=== PATIENT | male | born 1955 | race Caucasian/White ===

== ENCOUNTER 2017-08-03 05:44 | Inpatient (IN) | payer MEDICAID ==
[~2017-08-03] VITALS: Ht 188 cm; Wt 97.5 kg
[~2017-08-03 05:44] MED LIST: ATOR20TA65 PO; ENAL20TA PO; HYDR-3933 PO; HYDR25TA PO; INDO75CA3 PO; ZOLP10TA2 PO
[2017-08-03] MEDS ORDERED: LACTATED RINGERS 1,000 ML IV SCH (06:40)
[2017-08-03 06:47] LABS: BASOPHILS % 0.7 % (0.0-2.0); HEMATOCRIT. 42.8 % (42.0-52.0); HEMOGLOBIN. 14.5 g/dL (14.0-18.0); LYMPHOCYTES % 25.2 % (20.0-50.0); MEAN CORPUSCULAR HEMOGLOBIN 27.5 pg (28.0-32.0); MEAN CORPUSCULAR VOLUME 81.4 fL (80.0-94.0); MEAN PLATELET VOLUME 8.9 fl (7.4-10.4); MONOCYTES % 8.2 % (2.0-8.0); NEUTROPHILS % 63.9 % (40.0-76.0); PLATELET 241 x1000/uL (130-400); RED BLOOD CELL COUNT 5.26 mill/uL (4.7-6.1); RED CELL DISTRIBUTION WIDTH 15.5 % (11.6-14.6)
[2017-08-03] MEDS ORDERED: TRANEXAMIC ACID 1,000 MG in SODIUM CHLORIDE 0.9% 100 ML IV SCH (07:00)
[2017-08-03 07:01] LABS: CARBON DIOXIDE 29 mEq/L (21-32); CHLORIDE 103 mEq/L (98-107); PARTIAL THROMBOPLASTIN TIME 25.2 sec (23.4-31.0); PROTHROMBIN TIME 10.7 sec (9.4-11.6)
[2017-08-03 07:03] LABS: CLARITY URINE CLEAR (CLEAR); COLOR URINE YELLOW (YELLOW); GLUCOSE URINE NEGATIVE (NEGATIVE); KETONES URINE NEGATIVE (NEGATIVE); LEUKOCYTE ESTERASE URINE NEGATIVE (NEGATIVE); NITRITE URINE NEGATIVE (NEGATIVE); OCCULT BLOOD URINE NEGATIVE (NEGATIVE); PROTEIN URINE NEGATIVE (NEGATIVE); SPECIFIC GRAVITY URINE 1.023 (1.005-1.030); UROBILINOGEN URINE 0.2 E.U./dL (0.2-1.0)
[2017-08-03] MEDS ORDERED: BACITRACIN ZINC 15GM TUBE TOP ONE (07:11)
[2017-08-03] MEDS ORDERED: MORPHINE SULFATE/PF 1MG/ML 10ML AMP ONE (07:11)
[2017-08-03] MEDS ORDERED: NORMAL SALINE 0.9% 10 ML SYR ONE ×2 (07:12→07:35)
[2017-08-03] MEDS ORDERED: BACITRACIN 50,000 UNITS/VIAL ONE ×2 (07:13→07:35)
[2017-08-03] MEDS ORDERED: BUPIVACAINE/EPINEPHRINE/PF 0.25%/0.0005 30ML ONE ×2 (07:13→07:18)
[2017-08-03] MEDS ORDERED: METHYLENE BLUE 50 MG/10 ML AMP IV ONE (07:18)
[2017-08-03] MEDS ORDERED: GENTAMICIN SULF 40MG/ML 2ML VIAL ONE (07:41)
[2017-08-03] MEDS ORDERED: EPINEPHRINE 1:1000 1 MG/ML AMP ONE (07:42)
[2017-08-03] MEDS ORDERED: CEFAZOLIN SODIUM 1000MG/VIAL ONE (08:10)
[2017-08-03] MEDS ORDERED: DEXAMETHASONE 4MG/ML 1ML VIAL ONE (08:10)
[2017-08-03] MEDS ORDERED: LABETALOL HCL 20MG/4ML CARPUJECT IV PRN (08:45)
[2017-08-03] MEDS ORDERED: MEPERIDINE HCL/PF 25MG/ML CPJ IV PRN (08:45)
[2017-08-03] MEDS ORDERED: ONDANSETRON HCL 4MG/2ML VIAL IV PRN ×2 (08:45→11:30)
[2017-08-03] MEDS ORDERED: ACETAMINOPHEN 325MG TABLET PO PRN (11:30)
[2017-08-03] MEDS ORDERED: MAGNESIUM HYDROXIDE 400MG/5ML 30ML UDC PO PRN (11:30)
[2017-08-03] MEDS ORDERED: TRAMADOL 50MG TABLET PO PRN (11:30)
[2017-08-03] MEDS: HYDROMORPHONE HCL/PF 2MG/ML CPJ IV PRN ×7 (11:40→12:36)
[2017-08-03] MEDS ORDERED: NALOXONE INJ IV PRN (12:30)
[2017-08-03] MEDS ORDERED: DIPHENHYDRAMINE INJ IV PRN (12:30)
[2017-08-03] MEDS ORDERED: HYDROMORPHONE PCA 10MG/50ML IV PRN (12:30)
[2017-08-03] MEDS ORDERED: ONDANSETRON INJ IV PRN (12:30)
[2017-08-03] MEDS: CEFAZOLIN 2,000 MG in DEXT 5% WATER 100 ML IV SCH (15:52)
[2017-08-03 20:00] VITALS: BP 131/67
[2017-08-03] MEDS: DOCUSATE SODIUM 100MG CAPSULE PO SCH (20:30)
[2017-08-03] MEDS ORDERED: HYDROCODONE/ACETAMINOPHEN 10/325MG TABLET PO PRN (20:30)
[2017-08-03] MEDS ORDERED: DEXTROSE 50% WATER 50ML SYRINGE IV PRN (20:45)
[2017-08-03] MEDS: INSULIN LISPRO 100 UNITS/ML SUBCUT SCH (20:58)
[2017-08-03] MEDS: BLOOD SUGAR DIAGNOSTIC STRIP TEST SCH (20:58)
[2017-08-03] MEDS ORDERED: ZOLPIDEM TARTRATE 5MG TABLET PO PRN (21:00)
[2017-08-03] MEDS ORDERED: ENOXAPARIN 30MG/0.3ML SYR SUBCUT SCH (21:00)
[2017-08-03 21:20] VITALS: BP 131/78
[2017-08-04] VITALS: BP 117/65
[2017-08-04] MEDS ORDERED: CLONIDINE 0.1MG TABLET PO PRN (00:15)
[2017-08-04] MEDS: CEFAZOLIN 2,000 MG in DEXT 5% WATER 100 ML IV SCH (00:44)
[2017-08-04] MEDS: BLOOD SUGAR DIAGNOSTIC STRIP TEST SCH ×4 (06:24→21:00)
[2017-08-04 07:39] LABS: BASOPHILS % 0.3 % (0.0-2.0); EOSINOPHILS % 0.5 % (0.0-5.0); HEMATOCRIT. 34.4 % (42.0-52.0); LYMPHOCYTES % 19.6 % (20.0-50.0); MEAN CORPUSCULAR HEMOGLOBIN 27.8 pg (28.0-32.0); MEAN CORPUSCULAR VOLUME 80.9 fL (80.0-94.0); MEAN PLATELET VOLUME 9.3 fl (7.4-10.4); MONOCYTES % 10.9 % (2.0-8.0); NEUTROPHILS % 68.7 % (40.0-76.0); PLATELET 196 x1000/uL (130-400); RED BLOOD CELL COUNT 4.25 mill/uL (4.7-6.1); RED CELL DISTRIBUTION WIDTH 15.3 % (11.6-14.6)
[2017-08-04] MEDS: INSULIN LISPRO 100 UNITS/ML SUBCUT SCH ×4 (07:50→21:00)
[2017-08-04 08:00] VITALS: BP 111/60
[2017-08-04] MEDS: FERROUS SULFATE 325MG TABLET PO SCH ×3 (08:09→17:20)
[2017-08-04] MEDS: HYDROCODONE/ACETAMINOPHEN 10/325MG TABLET PO PRN ×2 (08:09→17:21)
[2017-08-04] MEDS: ENOXAPARIN 30MG/0.3ML SYR SUBCUT SCH ×2 (08:10→20:52)
[2017-08-04 08:15] LABS: CARBON DIOXIDE 31 mEq/L (21-32); CHLORIDE 98 mEq/L (98-107)
[2017-08-04 08:20] LABS: CREATINE KINASE 163 IU/L (39-308); CREATINE KINASE MB FRACTION 1.5 ng/mL (0.5-3.6); TROPONIN I < 0.02 ng/mL (0.00-0.04)
[2017-08-04] MEDS: DOCUSATE SODIUM 100MG CAPSULE PO SCH ×2 (08:28→17:05)
[2017-08-04 08:37] LABS: HEMOGLOBIN. 11.8 g/dL (14.0-18.0)
[2017-08-04 15:53] LABS: CREATINE KINASE 169 IU/L (39-308); CREATINE KINASE MB FRACTION 1.4 ng/mL (0.5-3.6); TROPONIN I < 0.02 ng/mL (0.00-0.04)
[2017-08-04 16:00] VITALS: BP 120/70
[2017-08-04 20:00] VITALS: BP 123/54
[2017-08-05] VITALS: BP 116/61
[2017-08-05] MEDS: HYDROCODONE/ACETAMINOPHEN 10/325MG TABLET PO PRN ×2 (04:51→09:25)
[2017-08-05] MEDS: BLOOD SUGAR DIAGNOSTIC STRIP TEST SCH ×2 (07:00→13:04)
[2017-08-05 07:21] LABS: CHLORIDE 95 mEq/L (98-107)
[2017-08-05 07:42] LABS: CARBON DIOXIDE 31 mEq/L (21-32)
[2017-08-05 07:49] LABS: BASOPHILS % 0.5 % (0.0-2.0); EOSINOPHILS % 0.3 % (0.0-5.0); HEMOGLOBIN. 11.1 g/dL (14.0-18.0); LYMPHOCYTES % 17.7 % (20.0-50.0); MEAN CORPUSCULAR HEMOGLOBIN 28.2 pg (28.0-32.0); MEAN CORPUSCULAR VOLUME 81.5 fL (80.0-94.0); MEAN PLATELET VOLUME 9.6 fl (7.4-10.4); MONOCYTES % 11.8 % (2.0-8.0); NEUTROPHILS % 69.7 % (40.0-76.0); PLATELET 210 x1000/uL (130-400); RED BLOOD CELL COUNT 3.92 mill/uL (4.7-6.1); RED CELL DISTRIBUTION WIDTH 14.9 % (11.6-14.6)
[2017-08-05] MEDS: INSULIN LISPRO 100 UNITS/ML SUBCUT SCH ×2 (07:50→12:50)
[2017-08-05 08:00] VITALS: BP 132/69
[2017-08-05] MEDS: FERROUS SULFATE 325MG TABLET PO SCH ×2 (08:49→13:41)
[2017-08-05] MEDS: ENOXAPARIN 30MG/0.3ML SYR SUBCUT SCH (09:12)
[2017-08-05] MEDS: DOCUSATE SODIUM 100MG CAPSULE PO SCH (09:12)
[2017-08-05 12:00] VITALS: BP 133/76
[2017-08-05 15:28] VITALS: BP 133/76
== END 2017-08-05 16:00 | disposition home or self-care (01) | DRG 302 ==
LOC: OR 05:44 → 6EST 20:00
PROVIDERS: ADMIT Internal Medicine; ATTEND Internal Medicine
PROC: 0SRC0J9 Replacement of Right Knee Joint with Synthetic Substitute, Cemented, Open Approach (ICD-10-PCS; principal; 2017-08-03 07:30)
DX: M17.11 Unilateral primary osteoarthritis, right knee (principal); I10 Essential (primary) hypertension; D64.9 Anemia, unspecified; E11.9 Type 2 diabetes mellitus without complications; B19.20 Unspecified viral hepatitis C without hepatic coma; E78.5 Hyperlipidemia, unspecified; G47.00 Insomnia, unspecified; M10.9 Gout, unspecified; Z79.899 Other long term (current) drug therapy
CPT/HCPCS: 36415; 73560; 80048; 81003; 82550; 82553; 82962; 84484; 85025; 85610; 85730; 88305; 88311; 93005; 93970; 97110; 97116; 97162; 97165; 97530; A4216; C1776; J0171; J0690; J1100; J1170; J1580; J1650; J2274; J2405; J3490; J7030; J7040; J7050; J7060; J7120; L1830; Q9968